=== PATIENT | female | born 1985 | race Hispanic/Latino ===

== ENCOUNTER 2017-09-09 15:58 | Emergency (ER) | payer OTHER, SELFPAY ==
[2017-09-09 17:37] LABS: Bilirubin Negative (Negative); Blood, Urine Negative (Negative); Glucose, Urine (Dipstick) Negative (Negative); Leukocyte Negative (Negative); Nitrite Negative (Negative); Protein, Urine (Dipstick) Negative (Neg-Trace); Specific Gravity, Urine 1.025 (1.005-1.030); Urobilinogen 0.2 mg/dL (0.2-1.0)
[2017-09-09 17:38] LABS: Clarity Clear (Clear)
[2017-09-09 17:39] LABS: Pregnancy Test - Urine (BHCG) POSITIVE (Negative); Pregu Control Background? CLEAR/WHITE (CLR/WHITE); Pregu Control Bar Appear? YES (CONTROL BAR)
[2017-09-09 17:40] LABS: Specific Gravity 1.025 (1.002-1.036)
[2017-09-09] MEDS ORDERED: Acetaminophen 500 MG TAB ONE (17:48)
--- NOTE | 2017-09-09 18:54 | RAD ---
TWO VIEWS CHEST 09/09/17 PROVIDED CLINICAL HISTORY: Chest pain, status post injury. FINDINGS: The cardiac and mediastinal silhouette is within normal limits. Lungs appear clear. No pleural fluid or pneumothorax apparent. IMPRESSION: No evidence for an acute cardiopulmonary process. POS: [facility]
--- NOTE | 2017-09-09 18:58 | RAD ---
CERVICAL SPINE RADIOGRAPHS THREE VIEWS 09/09/17 PROVIDED CLINICAL HISTORY: Neck pain status post injury. FINDINGS: There is no evidence for fracture or traumatic subluxation. No prevertebral soft tissue swelling is a pparent. The visualized lung apices appear clear. Nonspecific lucency is noted projecting superior to the clavicle just anterior to the T1 vertebral body on the lateral view. The etiology and significan ce of which are uncertain. This may be artifactual in nature related to collar placement. IMPRESSION: No evidence for fracture or traumatic subluxation. POS: [facility]
== END 2017-09-09 18:06 | disposition home or self-care (01) ==
LOC: ERS 15:58
DX: O9A.219 Injury, poisoning and certain other consequences of external causes complicating pregnancy, unspecified trimester (principal); S80.02XA Contusion of left knee, initial encounter; S90.31XA Contusion of right foot, initial encounter; M54.2 Cervicalgia; V43.52XA Car driver injured in collision with other type car in traffic accident, initial encounter; Z3A.00 Weeks of gestation of pregnancy not specified
CPT/HCPCS: 71046; 72040; 81003; 81025